=== PATIENT | male | born 1945 | race Two or more races ===

== ENCOUNTER → 2023-11-04 | Outpatient (CLI) | payer BC ==
[~2023-11-04] MED LIST: HYDR-4902 PO
[2023-11-04 10:07] LABS: Basophils # (auto) 0 10 ^3/uL (0-0.2); Basophils % (auto) 0.4 % (0.0-2.0); Eosinophils # (auto) 0.4 10 ^3/uL (0-0.8); Eosinophils % (auto) 5.2 % (0.0-7.0); Hematocrit 41.9 % (41.0-53.0); Hemoglobin 14.6 g/dL (13.5-17.5); Lymphocytes # (auto) 1.9 10 ^3/uL (0.4-5.4); Lymphocytes % (auto) 27.2 % (10.0-50.0); Mean Corpuscular Hemoglobin 31.1 pg (28.0-32.0); Mean Corpuscular Hgb Conc. 34.9 g/dL (32.0-36.0); Mean Corpuscular Volume 89.1 fL (80.0-100.0); Monocytes # (auto) 0.6 10 ^3/uL (0-1.3); Monocytes % (auto) 8.2 % (0.0-12.0); Neutrophils # (auto) 4.1 10 ^3/uL (1.6-8.6); Red Blood Cells 4.71 10^6/uL (4.5-5.90); Red Cell Distribution Width 13.4 % (11.8-14.3); White Blood Cell 6.9 10^3/uL (4.4-10.8)
[2023-11-04 10:30] LABS: Alanine Aminotransferase 35 U/L (7-40); Aspartate Aminotransferase 40 U/L (13-40)
== END | disposition home or self-care (01) ==
LOC: LAB 09:37
PROVIDERS: ATTEND Internal Medicine
DX: E55.9 Vitamin D deficiency, unspecified (principal); R79.89 Other specified abnormal findings of blood chemistry; Z86.39 Personal history of other endocrine, nutritional and metabolic disease
CPT/HCPCS: 36415; 82306; 82607; 84450; 84460; 85025

== ENCOUNTER 2025-01-18 05:51 | Outpatient (CLI) | payer BC ==
[2025-01-18 06:15] LABS: Hematocrit 48.6 % (41.0-53.0); Hemoglobin 16.5 g/dL (13.5-17.5); Mean Corpuscular Hemoglobin 30.6 pg (28.0-32.0); Mean Corpuscular Volume 89.9 fL (80.0-100.0); Nucleated Red Blood Cells % 0.1 %
[2025-01-18 06:35] LABS: Urine Budding Yeast OCCASIONAL /hpf (None Seen); Urine Protein, UAD Negative (Negative)
[2025-01-18 06:51] LABS: Alanine Aminotransferase 32 U/L (7-40); Alkaline Phosphatase 64 U/L (46-116); Anion Gap 9 (5-15); Blood Urea Nitrogen 9 mg/dL (9-23); Calcium 9.7 mg/dL (8.7-10.4); Carbon Dioxide 29 mmol/L (20-31); Chloride 102 mmol/L (98-107); Glucose 97 mg/dL (74-106); Potassium 4.6 mmol/L (3.5-5.1); Sodium 140 mmol/L (136-145)
[2025-01-18 06:52] LABS: Total Protein 7.7 g/dL (5.7-8.2)
[2025-01-18 06:53] LABS: Albumin 4.6 g/dL (3.2-4.8); Bilirubin, Total 1.1 mg/dL (0.2-1.0); Cholesterol 179 mg/dL (< 200); HDL Cholesterol 43 mg/dL (40-59); Triglycerides 156 mg/dL (< 150)
[2025-01-18 06:57] LABS: BUN/Creatinine Ratio 8.5 (10.0-20.0)
[2025-01-18 11:13] LABS: Prostate Specific Antigen 0.29 ng/mL (0.0-4.0)
[2025-01-18 11:16] LABS: Free T4 (Free Thyroxine) 1.16 ng/dL (0.89-1.76)
== END 2025-01-18 17:00 | disposition home or self-care (01) ==
LOC: LAB 05:51
PROVIDERS: ATTEND Internal Medicine
DX: E53.8 Deficiency of other specified B group vitamins (principal); E56.9 Vitamin deficiency, unspecified
CPT/HCPCS: 36415; 80053; 80061; 81001; 82306; 82607; 84153; 84439; 84443; 85025; 85652